=== PATIENT | female | born 1965 | race Caucasian/White ===

== ENCOUNTER 2016-03-29 13:40 | Inpatient (IN) | payer OTHER ==
[~2016-03-29] VITALS: Ht 157.5 cm; Wt 67.9 kg
[2016-03-29 15:36] LABS: HEMATOCRIT 43.3 % (36.0-46.0); MCH 30.2 PG (29.0-34.0); MCHC 34.4 G/DL (30.0-36.0); MCV 87.8 FL (83-99); MEAN PLAT.VOLUME 10.7 uM^3 (9.5-12.4); PLATELET COUNT 316 K/uL (156-360); RBC DIS.WIDTH-CV 13.5 % (11.8-14.6); RED BLOOD COUNT 4.93 M/uL (3.80-5.20); WHITE BLOOD COUNT 13.4 K/uL (4.1-10.2)
[2016-03-29 15:46] LABS: CHLORIDE 99 mEq/L (99-109); POTASSIUM 4.1 mEq/L (3.7-5.4); SODIUM 139 mEq/L (136-147)
[2016-03-29 15:48] LABS: GLUCOSE 173 mg/dL (70-99)
[2016-03-29 15:50] LABS: ANION GAP 14 MEQ/L (2-14)
[2016-03-29 15:52] LABS: GFR ESTIMATE (CALCULATED) 23 mL/min/
[2016-03-29 15:53] LABS: UREA NITROGEN (BUN) 38 mg/dL (9-23)
[2016-03-29 16:23] LABS: POINT-OF-CARE METER ID UU13113702
[2016-03-29 16:58] LABS: D-DIMER ELISA 0.25 mg/L FEU (< 0.57)
[2016-03-29 17:04] LABS: CREATINE KINASE 54 IU/L (1-294)
[2016-03-29 17:08] LABS: TROP-I INTERPRETATION NEGATIVE; TROPONIN-I < 0.01 ng/mL (0.0-0.30)
[2016-03-29] MEDS ORDERED: BYSTOLIC5 MG PO (17:22)
[2016-03-29] MEDS ORDERED: ATORVASTATIN CA40 MG PO (17:25)
[2016-03-29] MEDS ORDERED: MIRTAZAPINE7.5 MG PO (17:26)
[2016-03-29] MEDS ORDERED: WELLBUTRIN100 MG PO (17:27)
[2016-03-29] MEDS ORDERED: CLONIDINE HCL0.1 MG PO (17:28)
[2016-03-29] MEDS ORDERED: ZESTRIL40 MG PO (17:28)
[2016-03-29] MEDS ORDERED: METFORMIN HCL1000 MG PO (17:29)
[2016-03-29] MEDS ORDERED: VICTOZA 2-0.6 MG/0.1 SQ (17:30)
[2016-03-29] MEDS ORDERED: REQUIP0.5 MG PO (17:33)
[2016-03-29] MEDS ORDERED: AMBERIN (17:35)
[2016-03-29] MEDS ORDERED: ATORVASTATIN CA10 MG PO (17:37)
[2016-03-29] MEDS ORDERED: WELLBUTRIN XL300 MG PO (18:11)
[2016-03-29] MEDS ORDERED: METFORMIN HCL500 M1 PO (18:12)
[2016-03-29 20:28] LABS: TOTAL BILIRUBIN 0.4 mg/dL (0.0-1.0)
[2016-03-29 20:29] LABS: ALKALINE PHOSPHATASE 79 IU/L (3-129)
[2016-03-29 20:31] LABS: DIRECT BILIRUBIN 0.1 mg/dL (0.0-0.3)
[2016-03-29 20:32] LABS: URIC ACID 8.6 mg/dL (3.1-9.2)
[2016-03-29 22:33] LABS: POINT-OF-CARE METER ID UU13113702
[2016-03-30] VITALS (8 sets, daily range): BP systolic 112–171; BP diastolic 59–83
[2016-03-30 00:14] LABS: BILIRUBIN NEGATIVE; BLOOD NEGATIVE; COLOR YELLOW ((YELLOW)); GLUCOSE (STRIP) NEGATIVE; KETONES NEGATIVE; LEUKOCYTES NEGATIVE; NITRITE NEGATIVE; PROTEIN (STRIP) NEGATIVE; SPECIFIC GRAVITY 1.015 (1.000-1.030); UROBILINOGEN 0.2 MG/DL (0.2-1.0)
[2016-03-30 00:16] LABS: ADD MIUA? NO
[2016-03-30 06:57] LABS: HEMATOCRIT 37.5 % (36.0-46.0); MCH 29.9 PG (29.0-34.0); MCHC 32.8 G/DL (30.0-36.0); MCV 91.2 FL (83-99); MEAN PLAT.VOLUME 11.4 uM^3 (9.5-12.4); PLATELET COUNT 224 K/uL (156-360); RBC DIS.WIDTH-CV 13.6 % (11.8-14.6); RED BLOOD COUNT 4.11 M/uL (3.80-5.20)
[2016-03-30 06:59] LABS: WHITE BLOOD COUNT 9.2 K/uL (4.1-10.2)
[2016-03-30 07:18] LABS: ANION GAP 11 MEQ/L (2-14); CHLORIDE 105 MEQ/L (99-109); GLUCOSE 131 mg/dL (70-99); POTASSIUM 4.1 MEQ/L (3.7-5.4); SAMPLE HEMOLYSIS CHECK 0; SAMPLE ICTERIC CHECK 0; SAMPLE LIPEMIA CHECK 0; SODIUM 140 MEQ/L (136-147); UREA NITROGEN (BUN) 29 mg/dL (9-23)
[2016-03-30 07:19] LABS: GFR ESTIMATE (CALCULATED) 46 mL/min/
[2016-03-30 17:09] LABS: POINT-OF-CARE METER ID UU14149397
[2016-03-31 04:01] VITALS: BP 153/80
[2016-03-31 05:01] LABS: HEMATOCRIT 38.5 % (36.0-46.0); MCH 30.1 PG (29.0-34.0); MCHC 34.3 G/DL (30.0-36.0); MCV 87.7 FL (83-99); MEAN PLAT.VOLUME 10.6 uM^3 (9.5-12.4); PLATELET COUNT 221 K/uL (156-360); RBC DIS.WIDTH-SD 40.8 % (39-53); RED BLOOD COUNT 4.39 M/uL (3.80-5.20); WHITE BLOOD COUNT 8.9 K/uL (4.1-10.2)
[2016-03-31 05:11] LABS: CHLORIDE 106 mEq/L (99-109); POTASSIUM 4.3 mEq/L (3.7-5.4); SODIUM 138 mEq/L (136-147)
[2016-03-31 05:12] LABS: GLUCOSE 126 mg/dL (70-99)
[2016-03-31 05:14] LABS: ANION GAP 9 MEQ/L (2-14)
[2016-03-31 05:16] LABS: GFR ESTIMATE (CALCULATED) > 59 mL/min/
[2016-03-31 05:17] LABS: UREA NITROGEN (BUN) 14 mg/dL (9-23)
[2016-03-31 08:12] VITALS: BP 150/79
[2016-03-31 08:49] LABS: LYME DISEASE SEROLOGY SCREEN NEGATIVE (NEGATIVE)
[2016-03-31 11:41] VITALS: BP 140/88
[2016-03-31 11:41] LABS: POINT-OF-CARE METER ID UU14149397
[2016-03-31 16:31] VITALS: BP 139/73
[2016-03-31 16:50] LABS: POINT-OF-CARE METER ID UU14149397
[2016-03-31] MEDS ORDERED: AMLODIPINE BESYL5 MG PO (17:24)
== END 2016-03-31 18:19 | disposition home or self-care (01) | DRG 684 ==
LOC: EME 13:40 → EDOF 19:35 → 3EAST 19:35
PROVIDERS: Emergency Medicine; Hospitalist; Internal Medicine; Physician Assistant
DX: N17.9 Acute kidney failure, unspecified (principal); I95.2 Hypotension due to drugs; T46.4X5A Adverse effect of angiotensin-converting-enzyme inhibitors, initial encounter; R55 Syncope and collapse; I10 Essential (primary) hypertension; E11.9 Type 2 diabetes mellitus without complications; E78.5 Hyperlipidemia, unspecified; F32.9 Major depressive disorder, single episode, unspecified
CPT/HCPCS: 70450; 71020; 76705; 80048; 80076; 81003; 82436; 82550; 82948; 84133; 84300; 84443; 84484; 84550; 85027; 85379; 86618; 93005; 93306; 99281; 99285; J1644; J1815; J2405; J7030

== ENCOUNTER 2017-01-10 12:14 | Observation (INO) | payer OTHER ==
[~2017-01-10] VITALS: Ht 157.5 cm; Wt 67.4 kg
[~2017-01-10 12:14] MED LIST: AMBERIN; AMLODIPINE BESYL5 MG PO; ATORVASTATIN CA10 MG PO; ATORVASTATIN CA40 MG PO; BYSTOLIC5 MG PO; CLONIDINE HCL0.1 MG PO; METFORMIN HCL1000 MG PO; METFORMIN HCL500 M1 PO; MIRTAZAPINE7.5 MG PO; REQUIP0.5 MG PO; VICTOZA 2-0.6 MG/0.1 SQ; WELLBUTRIN XL300 MG PO; WELLBUTRIN100 MG PO; ZESTRIL40 MG PO
[2017-01-10 13:10] LABS: HEMATOCRIT 42.3 % (36.0-46.0); MCH 28.8 PG (29.0-34.0); MCHC 33.1 G/DL (30.0-36.0); PLATELET COUNT 228 K/uL (156-360); RED BLOOD COUNT 4.86 M/uL (3.80-5.20); WHITE BLOOD COUNT 11.5 K/uL (4.1-10.2)
[2017-01-10 13:18] LABS: CHLORIDE 108 mEq/L (99-109); POTASSIUM 4.3 mEq/L (3.7-5.4); SODIUM 141 mEq/L (136-147)
[2017-01-10 13:20] LABS: GLUCOSE 167 mg/dL (70-99)
[2017-01-10 13:21] LABS: ANION GAP 12 MEQ/L (2-14)
[2017-01-10 13:22] LABS: TOTAL BILIRUBIN 0.4 mg/dL (0.0-1.0)
[2017-01-10 13:24] LABS: ALKALINE PHOSPHATASE 88 IU/L (3-129); GFR ESTIMATE (CALCULATED) > 59 mL/min/
[2017-01-10 13:25] LABS: UREA NITROGEN (BUN) 15 mg/dL (9-23)
[2017-01-10 13:31] LABS: TROP-I INTERPRETATION NEGATIVE; TROPONIN-I < 0.01 ng/mL (0.0-0.30)
[2017-01-10] MEDS ORDERED: SILENOR6 MG PO (16:41)
[2017-01-10] MEDS ORDERED: TRULICITY1.5 MG/0.5 SC (16:45)
[2017-01-10] MEDS ORDERED: ALEVE220 M2 PO (16:47)
[2017-01-10] MEDS ORDERED: [UNRECOGNIZED DRUG - OTHER] PO (16:48)
[2017-01-10] MEDS ORDERED: MULTIVITAMIN1 EAC2 PO (16:50)
[2017-01-10 18:06] VITALS: BP 150/74
[2017-01-10 19:15] LABS: TROP-I INTERPRETATION NEGATIVE; TROPONIN-I < 0.01 ng/mL (0.0-0.30)
[2017-01-10 20:00] VITALS: BP 143/70
[2017-01-11 00:51] VITALS: BP 125/75
[2017-01-11 01:39] LABS: TROP-I INTERPRETATION NEGATIVE; TROPONIN-I < 0.01 ng/mL (0.0-0.30)
[2017-01-11 04:44] VITALS: BP 119/73
[2017-01-11 07:12] VITALS: BP 136/74
[2017-01-11 08:18] LABS: POINT-OF-CARE METER ID UU13113831
[2017-01-11 08:58] VITALS: BP 136/74
[2017-01-11] MEDS ORDERED: NICOTINE PATCH1 EAC1 TD (09:56)
== END 2017-01-11 11:31 | disposition home or self-care (01) ==
LOC: EME 12:14 → EDOF 16:06 → ENRESERV 16:08 → 5WEST 17:12
PROVIDERS: Nurse Practitioner Family; Student in an Organized Health Care Education/Training Program
DX: R07.9 Chest pain, unspecified (principal); R06.02 Shortness of breath; R91.1 Solitary pulmonary nodule; I10 Essential (primary) hypertension; E78.5 Hyperlipidemia, unspecified; E11.65 Type 2 diabetes mellitus with hyperglycemia; D72.829 Elevated white blood cell count, unspecified; F17.210 Nicotine dependence, cigarettes, uncomplicated; Z80.0 Family history of malignant neoplasm of digestive organs; Z83.3 Family history of diabetes mellitus; Z79.84 Long term (current) use of oral hypoglycemic drugs; J30.9 Allergic rhinitis, unspecified; Z91.013 Allergy to seafood
CPT/HCPCS: 71275; 80053; 82948; 84484; 85027; 93005; 94799; 99281; 99285; G0378; J1650; J1885; J2270; J7030

== ENCOUNTER 2017-05-25 19:57 | Inpatient (IN) | payer OTHER ==
[~2017-05-25] VITALS: Ht 157.5 cm; Wt 66.7 kg
[~2017-05-25 19:57] MED LIST changes: +ALEVE220 M2 PO; +MULTIVITAMIN1 EAC2 PO; +NICOTINE PATCH1 EAC1 TD; +SILENOR6 MG PO; +TRULICITY1.5 MG/0.5 SC; +[UNRECOGNIZED DRUG - OTHER] PO
[2017-05-25 20:57] LABS: BASOPHIL (%) 0.1 % (0-1); EOSINOPHIL (%) 0.1 % (0-5); HEMATOCRIT 42.7 % (36.0-46.0); HEMOGLOBIN 14.3 G/DL (11.9-15.5); IMMATURE GRANULOCYTE (%) 0.6 % (0.0-0.7); LYMPHOCYTE (%) 11.3 % (15-42); LYMPHOCYTE COUNT 1.5 K/uL (1.0-2.8); MCH 29.7 PG (29.0-34.0); MCHC 33.5 G/DL (30.0-36.0); MCV 88.6 FL (83-99); MONOCYTE (%) 3.2 % (3-12); MONOCYTE COUNT 0.4 K/uL (0-0.8); NEUTROPHIL (%) 84.7 % (45-76); PLATELET COUNT 282 K/uL (156-360); RBC DIS.WIDTH-CV 13.2 % (11.8-14.6); RED BLOOD COUNT 4.82 M/uL (3.80-5.20); WHITE BLOOD COUNT 12.9 K/uL (4.1-10.2)
[2017-05-25 21:06] LABS: CHLORIDE 102 mEq/L (99-109); POTASSIUM 4.7 mEq/L (3.7-5.4); SODIUM 138 mEq/L (136-147)
[2017-05-25 21:11] LABS: GFR ESTIMATE (CALCULATED) > 59 mL/min/
[2017-05-25 21:12] LABS: UREA NITROGEN (BUN) 17 mg/dL (9-23)
[2017-05-25 21:18] LABS: TROP-I INTERPRETATION NEGATIVE; TROPONIN-I < 0.01 ng/mL (0.0-0.30)
[2017-05-25 21:34] LABS: APPEARANCE CLEAR ((CLEAR)); BILIRUBIN NEGATIVE; BLOOD NEGATIVE; COLOR YELLOW ((YELLOW)); GLUCOSE (STRIP) >=500; KETONES 20; LEUKOCYTES NEGATIVE; NITRITE NEGATIVE; PROTEIN (STRIP) NEGATIVE; SPECIFIC GRAVITY 1.035 (1.000-1.030); UCUL ADDED? NO; UROBILINOGEN 0.2 MG/DL (0.2-1.0)
[2017-05-25 21:40] LABS: GLUCOSE 435 mg/dL (70-99)
[2017-05-25 22:44] LABS: ALBUMIN 4.9 g/dL (3.2-4.8)
[2017-05-25 22:48] LABS: TOTAL BILIRUBIN 0.2 mg/dL (0.0-1.0)
[2017-05-25 22:49] LABS: ALKALINE PHOSPHATASE 108 IU/L (3-129)
[2017-05-25 22:52] LABS: AST (GOT) 32 IU/L (2-34); DIRECT BILIRUBIN 0.1 mg/dL (0.0-0.3)
[2017-05-25 22:53] LABS: ALT (GPT) 63 IU/L (3-49); LIPASE 22 U/L (1.0-51.0)
[2017-05-26 01:07] LABS: CHLORIDE 107 mEq/L (99-109); POTASSIUM 4.2 mEq/L (3.7-5.4); SODIUM 140 mEq/L (136-147)
[2017-05-26 01:08] LABS: GLUCOSE 218 mg/dL (70-99)
[2017-05-26 01:12] LABS: CREATININE 0.8 mg/dL (0.6-1.3); GFR ESTIMATE (CALCULATED) > 59 mL/min/
[2017-05-26 01:13] LABS: UREA NITROGEN (BUN) 16 mg/dL (9-23)
[2017-05-26 04:00] VITALS: BP 146/86
[2017-05-26 04:08] LABS: HDL CHOLESTEROL 58 MG/DL (Desirable>=50); LDL CHOLESTEROL 77 mg/dL (Desirable<100); NON-HDL CHOLESTEROL 101 mg/dL (Desirable<160); TOTAL CHOLESTEROL 159 mg/dL (Desirable<200); TRIGLYCERIDES 120 MG/DL (Normal: <150)
[2017-05-26 09:24] LABS: THYROTROPIN (TSH) 0.31 MIU/L (0.4-5.5)
[2017-05-26 09:40] LABS: HEMOGLOBIN A1c (GLYCOHEMOGLOB) 8.4 % (Below 5.7)
[2017-05-26 11:03] VITALS: BP 143/73
[2017-05-26] MEDS ORDERED: MIRTAZAPINE7.5 MG PO (11:15)
[2017-05-26 12:18] LABS: BASOPHIL (%) 0.2 % (0-1); EOSINOPHIL (%) 0.4 % (0-5); EOSINOPHIL COUNT 0.1 K/uL (0-0.3); HEMOGLOBIN 11.8 G/DL (11.9-15.5); IMMATURE GRANULOCYTE (%) 0.3 % (0.0-0.7); LYMPHOCYTE (%) 19.3 % (15-42); LYMPHOCYTE COUNT 2.4 K/uL (1.0-2.8); MCH 29.9 PG (29.0-34.0); MCHC 32.8 G/DL (30.0-36.0); MCV 91.4 FL (83-99); MONOCYTE (%) 7.2 % (3-12); MONOCYTE COUNT 0.9 K/uL (0-0.8); NEUTROPHIL (%) 72.6 % (45-76); NEUTROPHIL COUNT 9.1 K/uL (1.8-6.4); PLATELET COUNT 219 K/uL (156-360); RBC DIS.WIDTH-CV 13.4 % (11.8-14.6); RBC DIS.WIDTH-SD 45.2 % (39-53); RED BLOOD COUNT 3.94 M/uL (3.80-5.20); WHITE BLOOD COUNT 12.6 K/uL (4.1-10.2)
[2017-05-26 12:48] LABS: ERTH.SED.RATE 5 MM/HR (0-30)
[2017-05-26 15:12] VITALS: BP 123/77
[2017-05-26 19:29] VITALS: BP 142/76
[2017-05-27] VITALS: BP 127/70; BP 127/71
[2017-05-27 04:00] VITALS: BP 144/77
[2017-05-27 07:13] VITALS: BP 138/78
[2017-05-27] MEDS ORDERED: ATORVASTATIN CA40 MG PO (09:47)
[2017-05-27] MEDS ORDERED: ASPIR-LOW81 MG PO (09:47)
[2017-05-27] MEDS ORDERED: ZOLPIDEM TARTRAT5 MG PO (09:48)
== END 2017-05-27 11:59 | disposition home or self-care (01) | DRG 64 ==
LOC: EME 19:57 → EDOF 05-26 02:23 → 5SOUTH 05-26 02:23 → ENRESERV 05-26 02:24 → 5SOUTH 05-26 03:36
PROVIDERS: Emergency Medicine; Hospitalist; Physician Assistant
DX: I63.9 Cerebral infarction, unspecified (principal); E11.65 Type 2 diabetes mellitus with hyperglycemia; E78.5 Hyperlipidemia, unspecified; F17.200 Nicotine dependence, unspecified, uncomplicated; R47.01 Aphasia; F32.9 Major depressive disorder, single episode, unspecified; E11.10 Type 2 diabetes mellitus with ketoacidosis without coma; I10 Essential (primary) hypertension; E86.0 Dehydration; J20.9 Acute bronchitis, unspecified; G25.81 Restless legs syndrome; Z88.3 Allergy status to other anti-infective agents
CPT/HCPCS: 70553; 71046; 80048; 80061; 80076; 81003; 82010; 82607; 82803; 82948; 83036; 83605; 83690; 84439; 84443; 84484; 85025; 85652; 87040; 92523 GN; 93005; 93306; 93880; 99281; 99285; J0696; J1650; J1815; J1885; J7030

== ENCOUNTER 2017-07-29 21:23 | Observation (INO) | payer OTHER ==
[~2017-07-29] VITALS: Ht 157.5 cm; Wt 70.3 kg
[~2017-07-29 21:23] MED LIST changes: +ASPIR-LOW81 MG PO; +ZOLPIDEM TARTRAT5 MG PO
[2017-07-29 21:52] LABS: AMYLASE 74 IU/L (1-118)
[2017-07-29 21:54] LABS: PTT 47.8 SEC (25-37)
[2017-07-29 21:56] LABS: BASOPHIL (%) 0.6 % (0-1); BASOPHIL COUNT 0.1 K/uL (0-0.1); EOSINOPHIL (%) 2.3 % (0-5); EOSINOPHIL COUNT 0.2 K/uL (0-0.3); HEMATOCRIT 41.6 % (36.0-46.0); HEMOGLOBIN 14.1 G/DL (11.9-15.5); IMMATURE GRANULOCYTE (%) 0.2 % (0.0-0.7); LYMPHOCYTE (%) 38.4 % (15-42); LYMPHOCYTE COUNT 3.6 K/uL (1.0-2.8); MCH 29.2 PG (29.0-34.0); MCHC 33.9 G/DL (30.0-36.0); MCV 86.1 FL (83-99); MONOCYTE (%) 5.9 % (3-12); MONOCYTE COUNT 0.6 K/uL (0-0.8); NEUTROPHIL (%) 52.6 % (45-76); NEUTROPHIL COUNT 4.9 K/uL (1.8-6.4); PLATELET COUNT 264 K/uL (156-360); RBC DIS.WIDTH-CV 12.9 % (11.8-14.6); RBC DIS.WIDTH-SD 40.2 % (39-53); RED BLOOD COUNT 4.83 M/uL (3.80-5.20); WHITE BLOOD COUNT 9.3 K/uL (4.1-10.2)
[2017-07-29 22:01] LABS: LIPASE 53 U/L (1.0-51.0)
[2017-07-29 22:05] LABS: TROP-I INTERPRETATION NEGATIVE; TROPONIN-I < 0.01 ng/mL (0.0-0.30)
[2017-07-29 22:12] LABS: CHLORIDE 103 mEq/L (99-109); POTASSIUM 3.8 mEq/L (3.7-5.4); SODIUM 143 mEq/L (136-147)
[2017-07-29 22:14] LABS: GLUCOSE 168 mg/dL (70-99)
[2017-07-29] MEDS ORDERED: LITE COAT ASPI325 M1 PO (22:16)
[2017-07-29] MEDS ORDERED: AMBIEN5 MG PO (22:16)
[2017-07-29] MEDS ORDERED: TYLENOL EXTRA500 MG PO (22:17)
[2017-07-29] MEDS ORDERED: TYLENOL WITH C1 EACH PO (22:17)
[2017-07-29] MEDS ORDERED: [UNRECOGNIZED DRUG - REMARK] PO (22:17)
[2017-07-29 22:18] LABS: CREATININE 0.8 mg/dL (0.6-1.3); GFR ESTIMATE (CALCULATED) > 59 mL/min/; UREA NITROGEN (BUN) 19 mg/dL (9-23)
[2017-07-30 01:19] LABS: AMPHETAMINE NEGATIVE (500 ng/mL); BARBITURATES NEGATIVE (200 ng/mL); BENZODIAZEPINES NEGATIVE (150 ng/mL); BUPRENORPHINE NEGATIVE (10 ng/mL); COCAINE NEGATIVE (150 ng/mL); METHADONE NEGATIVE (200 ng/mL); METHAMPHETAMINE NEGATIVE (500 ng/mL); OPIATES (MORPHINE) NEGATIVE (100 ng/mL); OXYCODONE NEGATIVE (100 ng/mL); PHENCYCLIDINE NEGATIVE (25 ng/mL); PROPOXYPHENE NEGATIVE (300 ng/mL); THC CANNABINOIDS NEGATIVE (50 ng/mL); TRICYCLIC ANTIDEPRESSANTS NEGATIVE (300 ng/mL)
[2017-07-30 03:03] LABS: HDL CHOLESTEROL 47 MG/DL (Desirable>=50); LDL CHOLESTEROL 56 mg/dL (Desirable<100); NON-HDL CHOLESTEROL 76 mg/dL (Desirable<160); TOTAL CHOLESTEROL 123 mg/dL (Desirable<200); TRIGLYCERIDES 99 MG/DL (Normal: <150)
[2017-07-30 03:45] VITALS: BP 130/69
[2017-07-30 08:52] VITALS: BP 136/65
[2017-07-30 11:33] VITALS: BP 135/70
[2017-07-30] MEDS ORDERED: PLAVIX75 MG PO (12:35)
[2017-07-30] MEDS ORDERED: ASPIR 8181 M1 PO (12:35)
[2017-08-01 08:48] LABS: HEMOGLOBIN A1c (GLYCOHEMOGLOB) 8.4 % (Below 5.7)
== END 2017-07-30 13:23 | disposition home or self-care (01) ==
LOC: EME 21:23 → EDOF 07-30 01:59 → 4SOUTH 07-30 01:59 → ENRESERV 07-30 02:03 → 4SOUTH 07-30 03:24
PROVIDERS: Emergency Medicine; Hospitalist
DX: G45.9 Transient cerebral ischemic attack, unspecified (principal); I69.320 Aphasia following cerebral infarction; I67.2 Cerebral atherosclerosis; E11.9 Type 2 diabetes mellitus without complications; I10 Essential (primary) hypertension; E78.5 Hyperlipidemia, unspecified; G43.909 Migraine, unspecified, not intractable, without status migrainosus; F41.9 Anxiety disorder, unspecified; Z79.82 Long term (current) use of aspirin; Z79.02 Long term (current) use of antithrombotics/antiplatelets; F17.200 Nicotine dependence, unspecified, uncomplicated; J30.9 Allergic rhinitis, unspecified; Z91.013 Allergy to seafood; Z79.84 Long term (current) use of oral hypoglycemic drugs
CPT/HCPCS: 70450; 70496; 70498; 70551; 80048; 80061; 82150; 82948; 83036; 83690; 84484; 85025; 85610; 85730; 99281; 99285; G0378; J1200; J1644; J2405; J2930